=== PATIENT | female | born 1965 | race Caucasian/White ===

== ENCOUNTER 2016-11-29 15:16 | Inpatient (IN) ==
[2016-11-29] MEDS ORDERED: SALINE FLUSH 10ml SYRINGE IVF PRN (15:50)
[2016-11-29] MEDS ORDERED: VANCOMYCIN 1,000 MG in NS 500ml 500 ML IV ONE (15:50)
[2016-11-29] MEDS ORDERED: NS 1,000 ML IV ONE (15:50)
--- NOTE | 2016-11-29 16:05 | Emergency Department Report ---
Skin/Abscess/FB HPI - General Chief complaint: Skin/Abscess/Foreign Body Stated complaint: lt leg wound Time Seen by Provider: 11/29/16 15:32 Source: patient, RN notes reviewed Mode of arrival: ambulatory Limitations: no limitations - History of Present Illness HPI narrative: 51yo woman is referred to the ER from wound care clinic. Pt missed her appt for wound vac change yesterday; pt arrived today and wound was found to be infected , necrotic, and draining purulent fluid. Pt c/o severe leg pain at base, with significant increase with palpation. MD complaint: other (Infected wound) Location: LLE Severity: severe Severity scale (1-10): 8 Quality: aching, sharp Consistency: constant Exacerbating factors: palpation, movement Associated symptoms: denies other symptoms Treatments prior to arrival: bandages, other (Wound vac) - Related Data Previous Rx's Medication Instructions Recorded Amlodipine [Norvasc] 5 mg PO DAILY #30 tablet 12/02/16 Ciprofloxacin [Cipro] 500 mg PO BID #20 tablet 12/02/16 Hydrocodone/APAP 7.5/325 [[place] 1 tab PO Q4H PRN #40 tablet 12/02/16 7.5/325] Naproxen [Aleve] 220 mg PO BID PRN tablet 12/02/16 Allergies Allergy/AdvReac Type Severity Reaction Status Date / Time amoxicillin Allergy Unknown Verified 11/29/16 15:35 ampicillin Allergy Unknown Verified 11/29/16 15:35 Review of Systems All systems: reviewed and negative except as stated Integumentary: Reports: as per HPI, non-healing lesions, wounds PFSH Patient Stated Medical History Hypertension Yes: UNDIAGNOSED Cellulitis Yes Bipolar Disorder Yes Depression Yes - Social History Smoking status: Current every day smoker Physical Exam - Limitations Limitations: no limitations, language barrier - General General appearance: alert - Normal Exams: Head:: Normocephalic without trauma Eyes:: Pupils are PERRLA w/ EOMI, No scleral icterus, irritation, or foreign bodies noted ENMT:: No facial trauma, nasal exudates, pharyngeal erythema, or exudates are noted Neck:: Full range of motion, without adenopathy, JVD, bruits or thyromegaly Lymphatic:: No lymphadenopathy, or lymphedema noted Musculoskeletal:: No tenderness, or deformity noted, good range of motion, all extremities Neurological:: Patient is alert, and oriented, cranial nerves, motor/sensory/ cerebellar, exams w/o gross deficits, to observation Psychiatric:: Patient exhibits, appropriate attention, emotion and affect - Expanded Lower Extremity Exam 1 - Ulcerated wound with necrotic tissue, fibrin, and foul odor. Lower leg exam: Present: tenderness, swelling, erythema Course - Consultations Consultation #1: Dr. Acosta: Based on size, location, status, and surrounding cellulitis, recommend admission, broad-spectrum atbx, and consult for OR debridement. Time: 16:05 Consultation #2: Hospitalist: Will admit for IV atbx. Time: 16:56 Vital Signs Temperature 98.5 F 11/29/16 15:20 Pulse Rate 94 11/29/16 15:20 Respiratory Rate 18 11/29/16 15:20 Blood Pressure 127/94 H 11/29/16 15:20 Pulse Oximetry 98 11/29/16 15:20 Temperature 97.0 F 12/02/16 11:00 Pulse Rate 67 12/02/16 11:00 Respiratory Rate 14 12/02/16 11:00 Blood Pressure 163/95 H 12/02/16 11:00 Pulse Oximetry 100 12/02/16 11:00 Skin/Abscess/Foreign Body - Differential Diagnosis Likely: abscess of skin or subcutaneous tissue, cellulitis (Ulceration, osteomyelitis) - Medical Records Attestation: I reviewed the patient's medical records. - Lab Data Attestation: I reviewed the patient's lab results. Result diagrams: 12/02/16 04:56 12/02/16 04:56 Lab Results 11/29/16 11/29/16 11/29/16 Range/Units 16:10 16:19 16:19 WBC 14.4 H (4.5-11.0) T/MM3 RBC 4.00 (4.00-5.20) M/MM3 Hgb 13.3 (12-16) GM/DL Hct 40.1 (36-46) % MCV 100.3 H (80-100) UM3 MCH 33.3 (26-34) UUG MCHC 33.2 (31-37) GM/DL RDW Std Deviation 43.4 (36.9-50.2) FL Plt Count 247 (130-400) T/MM3 MPV 10.1 (9.4-12.4) UM3 Immature Gran % (Auto) 0.2 (0.0-0.5) % Neut % (Auto) 78.2 H (33-66) % Lymph % (Auto) 15.8 L (23-45) % [place] % (Auto) 5.3 (0-9.0) % Eos % (Auto) 0.3 (0-4) % Baso % (Auto) 0.2 (0-2) % Neut # 11.2 H (1.8-7.7) T/MM3 Lymph # 2.3 (1-4.8) T/MM3 Imperial # 0.8 (0-0.8) T/MM3 Eos # 0.0 (0-0.5) T/MM3 Baso # 0.0 (0-0.2) T/MM3 Abs Immat Gran (auto) 0.03 (0.00-0.03) T/MM3 Turbidity < 20 (0-20) Sodium 140 (134-144) MEQ/L Potassium 3.8 (3.6-5) MEQ/L Chloride 105 (98-107) MEQ/L Carbon Dioxide 22 (22-30) MEQ/L Anion Gap 13 (5-15) MEQ/L BUN 17.0 (7-17) MG/DL Creatinine 0.7 (0.7-1.2) MG/DL GFR Calculation 89 BUN/Creatinine Ratio 24 (6-26) RATIO Glucose 90 (65-110) MG/DL Calculated Osmolality 271 (261-280) MOSM/KG Calcium 9.6 (8.4-10.2) MG/DL Total Bilirubin 0.60 (0.20-1.30) MG/DL Conjugated Bilirubin 0.00 (0.00-0.30) MG/DL Unconjugated Bilirubin 0.10 (0.00-11.10) MG/DL Icterus Index < 2 (0-7) AST 75 H (14-36) U/L ALT 90 H (9-52) U/L Alkaline Phosphatase 97 (38-126) U/L Total Protein 8.8 H (6.3-8.2) G/DL Albumin 4.2 (3.5-5.0) G/DL Globulin 4.6 H (2.4-3.6) G/DL Albumin/Globulin Ratio 0.9 L (1.1-2.2) RATIO Plasma Lactate 1.8 (0.6-2.2) MMOL/L Specimen Hemolysis < 15 (0-25) Disposition Clinical Impression: WEAKNESS, UTI Disposition: 02 To [facility] Condition: Stable Time of Disposition: 18:00 - Seen By: physician
[2016-11-29] MEDS ORDERED: NAPROXEN 220 MG TABLET PO PRN (18:24)
[2016-11-29] MEDS ORDERED: ONDANSETRON 4 MG/2 ML INJECTION IVP PRN (18:28)
[2016-11-29 18:38] VITALS: BMI 24.8
[2016-11-29] MEDS: NS 1,000 ML IV SCH (18:38)
[2016-11-29] MEDS: CEFEPIME 1 GM in NS 100 ML IV SCH ×2 (18:41→21:00)
[2016-11-29] MEDS: HYDROCODONE/APAP 7.5 MG/325 MG TABLET PO PRN (18:42)
--- NOTE | 2016-11-29 18:42 | Pharmacy Consult-Antibiotics ---
Pharmacy Consult-Vancomycin - Laboratory Information WBC 14.4 T/MM3 (4.5-11.0) H 11/29/16 16:19 BUN 17.0 MG/DL (7-17) 11/29/16 16:19 Creatinine 0.7 MG/DL (0.7-1.2) 11/29/16 16:19 - Consult Information VANCOMYCIN CONSULT: Dx: leg wound Current Renal Fx: SCr = 0.7mg/dl. Will give Vancomycin 2,000mg IV q12hrs. Will continue to monitor and adjust regimen to maintain therapeutic levels. Thank you.
[2016-11-29] MEDS: HYDROMORPHONE 2 MG/ML INJECTION IVP PRN ×2 (20:40→23:49)
--- NOTE | 2016-11-29 23:51 | Consultation ---
DATE OF CONSULTATION 11/29/2016 FINDINGS Mrs. Rodrigues is a 57-year-old female whom I was asked to see today as a result of a wound involving her left lower extremity. 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 She states that she struck her lower extremity overlying a cinder block which was out in the cattle pen. Patient states that a few days later she began to notice that some "blisters were beginning." She states she presented to the emergency room at that time and was subsequently transferred to our wound care facility. Patient states she has been receiving wound care over the last month. Patient states that recently a wound VAC was placed on her wound involving her left lower extremity. Patient states she came into the wound center today for a wound VAC change and staff had noted that her wound became "black and smelly." The patient was subsequent transferred to the emergency room for further evaluation and probable admission. PAST MEDICAL HISTORY, PAST SURGICAL HISTORY, MEDICATIONS, ALLERGIES, SOCIAL HISTORY, FAMILY HISTORY, REVIEW OF SYSTEMS Will be performed by my nurse practitioner, Sam Nicolas. PHYSICAL EXAM GENERAL: Mrs. Rodrigues is a 51-year-old female who does not appear to be in acute distress. VITAL SIGNS: Temperature 98.5, pulse 88, respirations 18, blood pressure 130/ 86. Soa2 100% on room air. HEENT: Normocephalic. Pupils are equally round and react to light and accommodation. CHEST: Clear to auscultation bilaterally. HEART: Regular rate and rhythm. Normal S1 and S2 without gallops, murmurs or clicks. ABDOMEN: Palpation of the abdomen reveals it to be soft and nontender. I do not appreciate any evidence for hepatosplenomegaly nor abnormal masses. EXTREMITIES: Attention was focused to the left lower extremity. There was a dressing overlying the wound involving the anterior tibial surface. Dressing was removed. The patient was found have a wound involving her anterior tibial surface. The wound itself was about 10 cm in length and about 4-5 cm in width. There was a greenish discharge coming forth from the wound itself. The wound surface was "black" as well in nature. There was a fair amount of periwound erythema and induration. Palpation along the edge of the wound did elicit a fair amount of tenderness to the patient. NEURO: Cranial nerves II-XII grossly intact. Patient is without focal motor or sensory deficits. LABORATORY/RADIOGRAPHIC EVALUATION From a laboratory standpoint the patient had a CBC and her white count was elevated at 14.4. CMP was obtained and found to be essentially within normal limits with the exception that her ALT and AST are elevated at 75 and 90, respectively. Wound culture was obtained from the wound in the ER. ASSESSMENT 51-year-old female with traumatic wound involving left lower extremity which appears to have developed progressive infection. Suspect Pseudomonas. PLAN I do believe the patient should be admitted to the facility given worsening of her traumatic wound involving the anterior tibial surface. Given her surrounding erythema, induration and worsening of the wound, I do believe that she is suffering from an underlying infection. I would recommend antibiotic choice that would cover Pseudomonas such as a fluoroquinolone. Orders were written for dressing changes to consist of Iodosorb to provide additional enzymatic debridement of the wound followed by gauze. I do believe that ultimately the patient is going to need to be taken to the operative suite for a more formal excisional surgical debridement of the wound. I do not believe this is emergent in nature. Would recommend placing the patient in the hospital and beginning broad-spectrum antibiotics, initiate local wound care and then proceed with excisional surgical debridement. LANETTE
--- NOTE | 2016-11-30 00:20 | History and Physical ---
CHIEF COMPLAINT Left leg wound with increasing pain and smell. HISTORY OF PRESENT ILLNESS Mrs. Rodrigues is a 51-year-old female who presents to [facility] Emergency Room from wound clinic for evaluation of her left leg wound. She reports in the early part of October she was out walking [place] the [place]. She scraped her left anterior soria and developed a wound. Typically she heals quite well. After this wound occurred she cleaned it and wiped it down. She kept it wrapped. About two days after her initial injury she reports of blister formation and she popped the blister that evening. By the next morning she reports her leg was looking very black. Ultimately she was seen in wound clinic by Dr. Pierre on November 03. She has been working with them ever since. She has been on Bactrim DS but she is not certain when it was started - she reports she has four more tablets left. On Monday, 2016, she had a wound VAC placed. She reports once the wound VAC was placed she noticed her wound started to smell more foul and was having much more discomfort. Over the weekend she was having increasing fevers and chills. She has also been noticing nausea and mild headache. She missed her appointment to be seen in wound clinic but did present to wound clinic today. When the wound was reevaluated it looked much worse - it was malodorous and draining purulent material. She was sent over to emergency room for evaluation. There her heart rate was 94 and blood pressure maintained at 127/98 (the patient does report hypertension with blood pressures usually running much higher). Dr. Gutierrez saw her in the emergency room and he did report a 10 x 5 cm wound on her left anterior tibia. Lab was obtained revealing leukocytosis with white count 14.4 and 78.2% neutrophils. Plasma lactate is 1.8. Liver enzymes are showing elevation. In light of her lower extremity wound with surrounding cellulitis and patient flagging positive for sepsis syndrome, Dr. Aguila was notified and she was subsequently placed in inpatient admission status for further antimicrobial therapy and wound care. Anticipated length of stay is thought to be greater than two midnights. PAST MEDICAL HISTORY Hypertension - the patient not on medication. COPD. Hepatitis C. Depression/anxiety. Tobacco dependency. History of in 1989. History of GONZALEZ/BSO 2004 secondary to bleeding (the patient not sure if she had uterine cancer at that time). Cholecystectomy October 2011. ALLERGIES Amoxicillin. Ampicillin. MEDICATIONS Keldron 5/325 one to two q.6h. p.r.n. Naprosyn 220 mg two tablets q46h p.r.n. Bactrim DS b.i.d. - course nearly completed. SOCIAL HISTORY Patient is to her of four years. She reports he is currently incarcerated, but anticipates him to be released in the near future. She lives on a farm outside [place], [place]. She does smoke but is in the process of cutting down - reports since her leg has been acting up she has only had three cigarettes in the past three days - is interested in stopping smoking. She receives her primary care through [facility] and has seen Dr. Carvalho for cardiac care. FAMILY HISTORY Mother at age 51 with myocardial infarction - she had hypertension and diabetes. Father at age 65 - the patient uncertain of cause. REVIEW OF SYSTEMS As above. GENERAL: Notes decreased appetite and nausea. She has had fevers off and on. HEENT: Notes blurred vision and headaches. Denies hearing change. Denies mouth pain. RESPIRATORY: Notes shortness of air and occasional cough. Denies pain with breathing. CARDIOVASCULAR: Notes palpitations. Denies chest pressure or heaviness. GI: Bowels have been stable. Notes nausea. : Notes urinary frequency. Denies pain, burning or blood. NEUROLOGIC: Denies localizing symptoms. SKIN: Denies other skin abnormalities other than her wound. Remainder of 10-point review of systems is negative. PHYSICAL EXAMINATION VITAL SIGNS: Weight 76.4 kg. BMI 24.5. Temperature 98.5, pulse 94/regular, respiratory rate 18/unlabored. Blood pressure 127/94. 98% room air saturation. GENERAL: Well-developed, well-nourished female who is awake, alert. She interacts appropriately. She does appear slightly ill but not toxic. HEENT: NC/AT. PERRLA. EOMI. No scleral icterus. Mucous membranes moist. Normal dentition. NECK: Supple without rigidity. Trachea is midline. LUNGS: Clear to auscultation bilaterally. I am not appreciating crackles or wheeze. She breathes comfortably on room air without distress. CARDIOVASCULAR: Regular rate and rhythm without murmur. ABDOMEN: Soft, nontender, nondistended. Bowel sounds are normoactive. I am not appreciating rebound tenderness or guarding. EXTREMITIES: No clubbing or cyanosis. The patient's left leg does appear more swollen as compared to the right. She has a wound which is currently wrap. The area of skin surrounding the wrapping does appear erythematous and is much more tender to touch than on the right side. NEUROLOGIC: Cranial nerves II-XII are grossly intact. No focal motor deficits. Vision and hearing are grossly intact. PSYCHIATRIC: Patient is awake, alert and oriented. Thoughts are linear. She interacts appropriately. SKIN: Warm and dry - patient is well tanned. She does have a covered wound on her left lower extremity. LABORATORY White blood count is 14.4 with 78.2% neutrophils. Hemoglobin is 13.3 with hematocrit 40.1, MCV 100.3 and platelets 247,000. Serum sodium is 140, potassium 3.8, chloride 105, CO2 22, BUN 17 with creatinine 0.7, GFR 89, blood glucose 90. AST is elevated at 75 with ALT elevated at 90. Plasma lactate is 1.8. ASSESSMENT 1. Sepsis syndrome - manifestations include tachycardia, leukocytosis. Source leg wound with cellulitis. 2. Nonhealing left lower extremity leg wound with surrounding cellulitis, failing outpatient therapy. 3. Leukocytosis. 4. Elevated liver enzymes. 5. Hypertension. 6. COPD. 7. Depression/anxiety. 8. Tobacco dependency PLAN 1. Will place patient in inpatient admission status at [facility] under the care of Dr. Aguila. Anticipate greater than two midnights of care needed. 2. Start vancomycin empirically for antimicrobial coverage of skin. Will add cefepime as Dr. Acosta worries there may be Pseudomonas involved. 3. Initiate IV fluids of normal saline at 100 mL/hr to maintain hydration. 4. Will have Keldron 7.5 available every four hours as needed for pain. She may continue with Aleve but would decrease the dose down to 220 mg b.i.d. p.r.n. ( possible elevation of liver enzymes secondary to excessive Aleve use). In addition, for more severe pain Dilaudid 0.5 mg will be available q.3h. as needed. 5. Dr. Acosta has been consulted - will help follow with wound care. 6. Will consult with wound team. 7. RT will provide tobacco cessation information. Patient was encouraged to continue to work to become a nonsmoker. 8. Initiate SCDs to her right lower extremity for DVT prevention. 9. Will have Zofran available as needed for nausea. 10. Milk of magnesia will be available as needed for constipation. 11. Recheck CBC and CMP in a.m. 12. Patient's care will be returned to [facility] at time of discharge from [facility]. 13. Case was discussed with Dr. Gutierrez and Dr. Acosta. LANETTE
[2016-11-30] MEDS: CEFEPIME 1 GM in NS 100 ML IV SCH ×4 (02:03→22:29)
[2016-11-30] MEDS: DiphenhydrAMINE 25 MG CAPSULE PO PRN ×2 (02:12→05:20)
[2016-11-30] MEDS: HYDROCODONE/APAP 7.5 MG/325 MG TABLET PO PRN ×3 (02:12→21:48)
[2016-11-30] MEDS: HYDROMORPHONE 2 MG/ML INJECTION IVP PRN ×3 (04:11→20:05)
[2016-11-30] MEDS: LORazepam 1 MG TABLET PO PRN ×2 (04:18→21:49)
--- NOTE | 2016-11-30 07:12 | General Surgery Consult Note ---
Consult date: 11/30/16 Attending Physician: Santos Aguila MD PCP. [facility] Reason for consult: wound care [facility] Patient Stated Medical History Migraine Yes Angina Yes Hypertension Yes: UNDIAGNOSED Other Cardiology Yes: ENDOCARDITIS Gastroesophageal Reflux Yes Disease Hx Urinary Tract Infection Yes Cellulitis Yes: CURRENT ON LEFT LEG Bipolar Disorder Yes Depression Yes COPD Hep-C Surgical History: Lap janae for Biliary Dyskinesia - Dave. Left 4th ring finger tendon repair 2008. GONZALEZ-BSO 2004 for bleeding. C-Sec -1987 Family History: mother age 51 - [place], HTN, DM father age 65 - spine cancer (per Dr. Joshi prior note) - Social History Smoking status: Current every day smoker Household members: spouse (although he is currently incarcerated and is to be released soon) Medications Home Medications Medication Instructions Recorded Confirmed Type Naproxen Sodium [Aleve] 440 mg PO Q6HR PRN 11/01/16 11/29/16 History Allergies Allergy/AdvReac Type Severity Reaction Status Date / Time amoxicillin Allergy Unknown Verified 11/29/16 15:35 ampicillin Allergy Unknown Verified 11/29/16 15:35 Review of Systems 10-point ROS: negative except for HPI and the following: - General General: Present: fever, chills - Eyes/Ears/Nose/Throat Eyes: Present: vision problems (blurry vision) - Cardiovascular Cardiovascular: Present: chest pain (angina) (pressure), palpitations - Respiratory Respiratory: Present: difficulty breathing (COPD) - Gastrointestinal Gastrointestinal: Present: nausea - Genitourinary Genitourinary: Present: other (urinary frequency) - Psychiatric Psychiatric: Present: anxiety, depression - Vital Signs Last Vital Signs Temp 96.2 F L 11/30/16 00:00 Pulse 76 11/30/16 00:00 Resp 20 11/30/16 00:00 BP 111/77 11/30/16 00:00 Pulse Ox 100 11/30/16 00:00 - Laboratory Result Diagrams: 11/30/16 04:37 11/30/16 04:37 Wound/Stoma/Drain Assessment - Wound Management Left Lower Leg Wound Type: Open Wound Wound Present on Admission?: Yes Wound Length: 8.5 Wound Width: 4 Wound Surrounding Tissue Appearance: Dark Red Wound Drainage Odor: Slight Odor Wound Dressing Status: Dry & Intact, Reinforced Wound Packing Type: Gauze Pads Primary Dressing: Gauze Pad General Surgery Results - Results Labs: 11/30/16 04:37 11/30/16 04:37 Hospital Course Summary Disclaimer: The visit summary below is not to be considered part of the above Progress Note. Sepsis Assessment - Evaluation Sepsis screening result: Sepsis Risk
[2016-11-30] MEDS ORDERED: DiphenhydrAMINE 25 MG CAPSULE PO PRN (07:31)
[2016-11-30] MEDS: NS 1,000 ML IV SCH (07:39)
--- NOTE | 2016-11-30 11:23 | Pharmacy Consult-Antibiotics ---
Pharmacy Consult-Vancomycin - Laboratory Information WBC 7.8 T/MM3 (4.5-11.0) D 11/30/16 04:37 BUN 18.0 MG/DL (7-17) H 11/30/16 04:37 Creatinine 0.7 MG/DL (0.7-1.2) 11/30/16 04:37 VANCOMYCIN SHORT REVIEW: Today's SCr = 0.7 mg/dL. Calculated CrCl > 100 mL/min The renal function appears to be stable. I will continue the Vancomycin as currently ordered, 2,000 mg IV Q12hrs. I ordered a Vancomycin trough and serum creatinine before the 12/01/16 0800 dose. The pharmacy will review the trough and creatinine clearance at that time and will adjust the Vancomycin if needed. Thanks for the Vancomycin Protocol, Justo Swift, Pharmacist.
[2016-11-30] MEDS ORDERED: LIDOCAINE 2.5%/PRILOCAINE 2.5% CREAM 30gm TOP PRN (13:06)
[2016-11-30] MEDS: NAPROXEN 220 MG TABLET PO PRN (15:42)
--- NOTE | 2016-11-30 17:20 | Progress Note ---
<Lisa Freeman V - Last Filed: 11/30/16 17:17> Subjective: Danyelle is seen this afternoon in follow up. She is resting in bed today and reports having difficulty sleeping overnight as her "mind was racing". She has a moderate amount of pain to the left leg wound today and has been ulitlizing [place] for pain. She does note some mild generalized itching following [place]. Remains afebrile. Objective Vital signs: Temperature 96.5 F L 11/30/16 08:00 Pulse Rate 66 11/30/16 08:00 Respiratory Rate 16 11/30/16 08:00 Blood Pressure 132/84 11/30/16 08:00 Pulse Oximetry 98 11/30/16 08:00 Oxygen Delivery Method Room Air Weight: 78.3 kg - Constitutional Present: well nourished, well developed - Routine HEENT Exam Eye: Present: EOMI ENT: Present: mucous membranes moist, dentition normal - Routine Respiratory Exam Present: CTA bilaterally. Absent: wheezes - Routine Cardiovascular Exam Present: RRR. Absent: murmur - Routine Abdominal Exam Present: soft, normoactive bowel sounds, non distended. Absent: tenderness - Routine Extremities Exam Present: edema (LLE) - Routine Back/Spine/Pelvis Exam Back/Spine: Present: full ROM - Routine Skin Exam Present: intact, dry, warm - Routine Neurological Exam Present: alert, oriented X3, CN II-XII intact - Routine Lymphatic Exam Lymphatic: Absent: adenopathy - Routine Psychiatric Exam Present: normal affect Results - Labs CBC & Chem 7: 11/30/16 04:37 11/30/16 04:37 Assessment and Plan (1) Sepsis Current visit: Yes Status: Acute (2) Wound of lower extremity Current visit: Yes Status: Acute (3) Leukocytosis Current visit: Yes Status: Resolved (4) Elevated liver enzymes Current visit: Yes Status: Chronic (5) Hypertension Current visit: Yes Status: Chronic (6) COPD (chronic obstructive pulmonary disease) Current visit: Yes Status: Chronic (7) Depression Current visit: Yes Status: Chronic (8) Anxiety Current visit: Yes Status: Chronic (9) Hepatitis C Current visit: Yes Status: Chronic Assessment and Plan: 11/30/16 Including Cefepime and Vancomycin for ongoing antimicrobial coverage. Work on pain control including Emla cream topical, and [place] She may utilize Benadryl as needed for itching Continue to monitor laboratory studies. Leukocytosis have resolved, white count today 7.8. Continue to follow. Elevated liver enzymes as this is likely chronic related to her history of hepatitis C. Recheck CBC and CMP tomorrow morning to follow blood counts, renal function, electrolytes and LFTs. Appreciate surgical recommendations as per Dr. Acosta. Planning for incision and drainage tomorrow 12/01 Sepsis Assessment - Evaluation Sepsis screening result: No Definite Risk Hospital Course Summary Disclaimer: The visit summary below is not to be considered part of the above Progress Note. Hospital Course: 11/29/16- Admission 1. Will place patient in inpatient admission status at [facility] under the care of Dr. Aguila. Anticipate greater than two midnights of care needed. 2. Start vancomycin empirically for antimicrobial coverage of skin. Will add cefepime as Dr. Acosta worries there may be Pseudomonas involved. 3. Initiate IV fluids of normal saline at 100 mL/hr to maintain hydration. 4. Will have [place] 7.5 available every four hours as needed for pain. She may continue with Aleve but would decrease the dose down to 220 mg b.i.d. p.r.n. ( possible elevation of liver enzymes secondary to excessive Aleve use). In addition, for more severe pain Dilaudid 0.5 mg will be available q.3h. as needed. 5. Dr. Acosta has been consulted - will help follow with wound care. 6. Will consult with wound team. 7. RT will provide tobacco cessation information. Patient was encouraged to continue to work to become a nonsmoker. 8. Initiate SCDs to her right lower extremity for DVT prevention. 9. Will have Zofran available as needed for nausea. 10. Milk of magnesia will be available as needed for constipation. 11. Recheck CBC and CMP in a.m. 12. Patient's care [facility] to [facility] at time of discharge from [facility]. 13. Case was discussed with Dr. Gutierrez and Dr. Acosta. 11/30/16 Including Cefepime and Vancomycin for ongoing antimicrobial coverage. Work on pain control including Emla cream topical, and [place] She may utilize Benadryl as needed for itching Continue to monitor laboratory studies. Leukocytosis have resolved, white count today 7.8. Continue to follow. Elevated liver enzymes as this is likely chronic related to her history of hepatitis C. Recheck CBC and CMP tomorrow morning to follow blood counts, renal function, electrolytes and LFTs. Appreciate surgical recommendations as per Dr. Acosta. Planning for incision and drainage tomorrow 12/01 <Santos Aguila - Last Filed: 11/30/16 20:54> Objective Vital signs: Temperature 96.5 F L 11/30/16 08:00 Pulse Rate 66 11/30/16 16:00 Respiratory Rate 16 11/30/16 16:00 Blood Pressure 133/76 11/30/16 16:00 Pulse Oximetry 97 11/30/16 16:00 Oxygen Delivery Method Room Air Results - Labs CBC & Chem 7: 11/30/16 04:37 11/30/16 04:37 Assessment and Plan (1) Sepsis Current visit: Yes Status: Acute (2) Wound of lower extremity Current visit: Yes Status: Acute (3) Leukocytosis Current visit: Yes Status: Resolved (4) Elevated liver enzymes Current visit: Yes Status: Chronic (5) Hypertension Current visit: Yes Status: Chronic (6) COPD (chronic obstructive pulmonary disease) Current visit: Yes Status: Chronic (7) Depression Current visit: Yes Status: Chronic (8) Anxiety Current visit: Yes Status: Chronic (9) Hepatitis C Current visit: Yes Status: Chronic Assessment and Plan: Have independently interviewed and examined pt. Chart reviewed. Case discussed with my BALE BREAKER OPERATOR. Care plan developed with my supervision; agree with above. Doing fair-not used to being indoors all the time. Slept poorly-leg pain and hard to get comfortable. Breathing stable. Appetite decrease, but no nause. Dr Acosta did bedside debridement-plans OR visit tomorrow. Lungs: clear CV: regular AB: soft nt/nd +BS MSE: awake alert appropriate Plan: Continue with vanco and cefepime for coverage. Continue wound care as outline by Dr Acosta-anticipate Sx debridement tomorrow. Continue pain control. Hospital Course Summary Disclaimer: The visit summary below is not to be considered part of the above Progress Note.
--- NOTE | 2016-11-30 17:49 | Progress Note ---
DATE OF SERVICE 11/30/2016 FINDINGS The patient today states that she is not feeling well. She states that she is extremely tired. She continues to have discomfort involving the left lower extremity. EXAM VITAL SIGNS: Afebrile, normotensive. Current vitals include temperature 96.5, pulse 66, respirations 16, blood pressure 132/84, SAO2 98% on room air. HEENT: Normocephalic. Pupils are equally round and react to light and accommodation. CHEST: Clear to auscultation bilaterally. HEART: Regular rate and rhythm. Normal S1 and S2 without gallops, murmurs or clicks. EXTREMITIES: Attention was focused to the left lower extremity. Visualization of the lower extremity does reveal ongoing erythema surrounding the wound upon the anterior tibial surface. There is some residual necrotic tissue within the wound bed itself. Overall the wound does appear slightly improved in comparison to last evening. ASSESSMENT 51-year-old female with traumatic wound involving left lower extremity with associated necrotic subcutaneous tissues and surrounding cellulitis. PLAN Continue with ongoing antibiotic therapy. Attempt was made at performing bedside debridement today. EMLA Cream was placed overlying the wound and several minutes were allowed to elapse. Next, utilizing a sharp surgical curette, tissue forceps and 15-blade, a portion of the underlying necrotic subcutaneous tissue was able to be excised. The patient, however, began to experience a moderate amount of discomfort and therefore the procedure was aborted before all necrotic tissue could be completely excised. We will apply Iodosorb overlying the wound and reevaluate wound tomorrow morning. If the patient continues to have ongoing necrotic material, the patient may ultimately be taken to the operative suite tomorrow for a more formal excisional surgical debridement. For the meantime will continue with current antibiotic therapy and local wound care. LANETTE
[2016-12-01] MEDS: NS 1,000 ML IV SCH ×3 (02:26→14:38)
[2016-12-01] MEDS: CEFEPIME 1 GM in NS 100 ML IV SCH ×4 (05:07→19:47)
--- NOTE | 2016-12-01 08:44 | General Surgery Progress Note ---
Subjective Patient reports: still having pain (especially at wound site and distally to foot) - Vital Signs Last Vital Signs Temp 97.1 F 12/01/16 07:42 Pulse 79 12/01/16 07:42 Resp 16 12/01/16 07:42 BP 137/98 H 12/01/16 07:42 Pulse Ox 98 12/01/16 07:42 - Laboratory Result Diagrams: 12/01/16 04:37 12/01/16 06:37 - Microbiogy Microbiology 11/29/16 16:08 Leg, Left Superficial Wound Culture - Preliminary Gram Negative Lemuel Gram Negative Lemuel#2 - Abnormal Exam General: mild distress (2nd to left ankle and foot pain) - Normal Exam General: awake, alert, oriented Cardiovascular: regular rhythm, regular rate Respiratory: clear bilaterally Abdominal: non-tender Wound/Stoma/Drain Assessment - Wound Management Left Lower Leg Wound Type: Open Wound Wound Present on Admission?: Yes Wound Length: 8.5 Wound Width: 4 Wound Depth: 1.5 Tunneling: No Wound Bed Appearance: Beefy Red, [place], Yellow, [place], Slough Wound Surrounding Tissue Appearance: [place], Bright Red, Edematous Wound Drainage Description: Serosanguineous Wound Drainage Amount: Scant Wound Drainage Odor: Slight Odor Wound Dressing Status: Changed Wound Irrigant Solution: Enzymatic Paste Wound Packing Type: Gauze Pads Primary Dressing: Gauze Pad Secondary Dressing: Adhesive Dressing, Absorbant Pad Dressing Change Date: 11/30/16 Dressing Change Time: 13:20 Dressing Change Patient Tolerance: Tolerated Poorly Assessment and Plan (1) Wound of lower extremity Current Visit: Yes Status: Acute Qualifiers: Encounter type: initial encounter Laterality: left Qualified Code(s): S81.802A - Unspecified open wound, left lower leg, initial encounter Plan: Wound looking much better after utilizing Iodosorb over night, about 90% beefy but still with dorman necrotic at the base and cephalad corner. Much too tender to attempt any type of debridement. Any even light touch is very painful. WBC now 4.1 (7.8 yesterday), continue Cefapine and Vaco for now, adjust as needed once C&S is complete. She has been NPO since midnight, will take her to the OR for light sedation and a more thorough debridement later this morning. Hospital Course Summary Disclaimer: The visit summary below is not to be considered part of the above Progress Note. Hospital Course: 11/29/16- Admission 1. Will place patient in inpatient admission status at [facility] under the care of Dr. Aguila. Anticipate greater than two midnights of care needed. 2. Start vancomycin empirically for antimicrobial coverage of skin. Will add cefepime as Dr. Acosta worries there may be Pseudomonas involved. 3. Initiate IV fluids of normal saline at 100 mL/hr to maintain hydration. 4. Will have [place] 7.5 available every four hours as needed for pain. She may continue with Aleve but would decrease the dose down to 220 mg b.i.d. p.r.n. ( possible elevation of liver enzymes secondary to excessive Aleve use). In addition, for more severe pain Dilaudid 0.5 mg will be available q.3h. as needed. 5. Dr. Acosta has been consulted - will help follow with wound care. 6. Will consult with wound team. 7. RT will provide tobacco cessation information. Patient was encouraged to continue to work to become a nonsmoker. 8. Initiate SCDs to her right lower extremity for DVT prevention. 9. Will have Zofran available as needed for nausea. 10. Milk of magnesia will be available as needed for constipation. 11. Recheck CBC and CMP in a.m. 12. Patient's care will be returned to [facility] at time of discharge from [facility]. 13. Case was discussed with Dr. Gutierrez and Dr. Acosta. 11/30/16 Including Cefepime and Vancomycin for ongoing antimicrobial coverage. Work on pain control including Emla cream topical, and [place] She may utilize Benadryl as needed for itching Continue to monitor laboratory studies. Leukocytosis have resolved, white count today 7.8. Continue to follow. Elevated liver enzymes as this is likely chronic related to her history of hepatitis C. Recheck CBC and CMP tomorrow morning to follow blood counts, renal function, electrolytes and LFTs. Appreciate surgical recommendations as per Dr. Acosta. Planning for incision and drainage tomorrow 12/01 Sepsis Assessment - Evaluation Sepsis screening result: No Definite Risk
[2016-12-01] MEDS ORDERED: BISACODYL 10 MG SUPPOSITORY RECTALLY PRN ×2 (09:16→15:00)
[2016-12-01] MEDS ORDERED: POLYETHYL GLYCOL 3350 17gm PACKET PO PRN (09:16)
[2016-12-01] MEDS ORDERED: MIDAZOLAM 2mg/2ml INJECTION ONE (10:41)
[2016-12-01] MEDS ORDERED: FentaNYL 100 MCG/2 ML INJECTION ONE (10:41)
[2016-12-01] MEDS ORDERED: PROPOFOL 500 MG/50 ML VIAL IV ONE (10:42)
[2016-12-01] MEDS ORDERED: BUPIVACAINE 0.25%/EPI 1:200,000 30ml SDV ID ONE (11:18)
--- NOTE | 2016-12-01 11:20 | Pharmacy Consult-Antibiotics ---
Pharmacy Consult-Vancomycin - Laboratory Information WBC 4.1 T/MM3 (4.5-11.0) L D 12/01/16 04:37 BUN 14.0 MG/DL (7-17) 12/01/16 04:37 Creatinine 0.7 MG/DL (0.7-1.2) 12/01/16 06:37 Vancomycin Trough 20.24 UG/ML (15-20) H 12/01/16 06:37 VANCOMYCIN CONSULT: Dx: Leg Wound Current Renal Fx: SCr = 0.7 mg/dl. Est. CrCl ~ 100 mL/min. Vancomycin Trough = 20.24 mcg/mL (Range: 15-20 mcg/mL). I will change the Vancomycin to 1,750 mg iv every 12 hours (1000/2200). The estimated trough will be around 17 mcg/mL. The pharmacy will continue to monitor the renal function and the Vancomycin troughs and will adjust the regimen to maintain therapeutic levels. Thank you for the Vancomycin Protocol, Justo Swift, Pharmacist.
--- NOTE | 2016-12-01 11:52 | General Surgery Procedure Note ---
Date of Procedure: 12/01/16 Surgeon: Dave Swim Coach: Sam Nicolas APRN Postoperative Diagnosis: Open wound with necrosis left lower leg Procedure: Surgical debridement of necrotic tissue left lower leg wound Estimated Blood Loss: See Anesthesia Record.
[2016-12-01] MEDS: HYDROMORPHONE 2 MG/ML INJECTION IVP PRN ×4 (11:59→19:43)
--- NOTE | 2016-12-01 13:04 | Anesthesia Postoperative Note ---
- Date and Time Date: 12/01/16 Time: 13:00 - Status Patient Participated in Evaluation: Patient Participated in Person Vital Signs: Temperature 97.0 F 12/01/16 11:40 Pulse Rate 53 L 12/01/16 12:40 Respiratory Rate 14 12/01/16 12:40 Blood Pressure 162/90 H 12/01/16 12:40 Pulse Oximetry 97 12/01/16 12:40 Oxygen Delivery Method Room Air Respiratory Function: Airway Patent, Regular Respirations Cardiovascular Function: Regular Pulse Mental Status: Alert and Oriented Pain Intensity: 5 Hydration: IV Infusing Complications During Recover: None Apparent - Follow-Up Instructions Instructions: Per Surgeon
[2016-12-01] MEDS: HYDROCODONE/APAP 7.5 MG/325 MG TABLET PO PRN ×2 (14:54→22:34)
--- NOTE | 2016-12-01 16:02 | Progress Note ---
Subjective: F/U: Sepsis-resolved, traumatic wound to LE failing outpatient treatment Doing okay this afternoon-tolerated Surgical debridement. More pain to leg-meds are helping. Does need help getting up and around-leg painful with ambulation. Breathing well. Eating well. No ab pain. Feels bowels are stable. Tired of being in Hospital (not used to being indoors this much), but feels mood stable. Objective Vital signs: Temperature 96.6 F L 12/01/16 13:25 Pulse Rate 67 12/01/16 15:10 Respiratory Rate 14 12/01/16 13:25 Blood Pressure 154/89 H 12/01/16 14:40 Pulse Oximetry 99 12/01/16 15:10 Oxygen Delivery Method Room Air Weight: 81.3 kg - Constitutional Present: no acute distress, well nourished, well developed, cooperative - Routine HEENT Exam Head: Present: normocephalic, atraumatic Eye: Present: EOMI, PERRL ENT: Present: mucous membranes moist - Routine Respiratory Exam Present: CTA bilaterally. Absent: respiratory distress, rhonchi, wheezes - Routine Cardiovascular Exam Present: RRR - Routine Abdominal Exam Present: soft, normoactive bowel sounds, non distended, non tender - Routine Extremities Exam Present: cyanosis, clubbing, edema (To left ankle. ) - Routine Musculoskeletal Exam Musculoskeletal: Present: no clubbing or cyanosis, normal strength - Routine Skin Exam Present: dry, warm, wounds (To left soria covered and dry ) - Routine Neurological Exam Present: alert, oriented X3, CN II-XII intact, vision grossly intact, hearing grossly intact. Absent: motor deficit - Routine Psychiatric Exam Present: normal affect, normal thought process, cooperative, good insight, good judgment. Absent: anxious, agitated Results - Labs CBC & Chem 7: 12/01/16 04:37 12/01/16 06:37 Assessment and Plan (1) Wound of lower extremity Current visit: Yes Status: Acute (2) Sepsis Current visit: Yes Status: Resolved (3) Leukocytosis Current visit: Yes Status: Resolved (4) Elevated liver enzymes Current visit: Yes Status: Chronic (5) Hypertension Current visit: Yes Status: Chronic (6) COPD (chronic obstructive pulmonary disease) Current visit: Yes Status: Chronic (7) Depression Current visit: Yes Status: Chronic (8) Anxiety Current visit: Yes Status: Chronic (9) Hepatitis C Current visit: Yes Status: Chronic DVT Prophylaxis: SCD's Assessment and Plan: Underwent surgical debridement of necrotic tissue of left lower leg wound - Dr Acosta Continue with vanco and cefepime for coverage. Culture and sensitivities pending. Continue wound care as outline by Dr Acosta. Decrease IVF to 50cc/hr. Continue pain control. As blood pressure with elevation will start Norvasc 5mg daily. Will consult PT in am to help functional status due to gait instability from leg wound. Recheck CBC in am due to leukopenia. Will check BMP in am due to IVF and medication use. Sepsis Assessment - Evaluation Sepsis screening result: No Definite Risk Hospital Course Summary Disclaimer: The visit summary below is not to be considered part of the above Progress Note. Hospital Course: 11/29/16- Admission 1. Will place patient in inpatient admission status at [facility] under the care of Dr. Aguila. Anticipate greater than two midnights of care needed. 2. Start vancomycin empirically for antimicrobial coverage of skin. Will add cefepime as Dr. Acosta worries there may be Pseudomonas involved. 3. Initiate IV fluids of normal saline at 100 mL/hr to maintain hydration. 4. Will have [place] 7.5 available every four hours as needed for pain. She may continue with Aleve but would decrease the dose down to 220 mg b.i.d. p.r.n. ( possible elevation of liver enzymes secondary to excessive Aleve use). In addition, for more severe pain Dilaudid 0.5 mg will be available q.3h. as needed. 5. Dr. Acosta has been consulted - will help follow with wound care. 6. Will consult with wound team. 7. RT will provide tobacco cessation information. Patient was encouraged to continue to work to become a nonsmoker. 8. Initiate SCDs to her right lower extremity for DVT prevention. 9. Will have Zofran available as needed for nausea. 10. Milk of magnesia will be available as needed for constipation. 11. Recheck CBC and CMP in a.m. 12. Patient's care [facility] to [facility] at time of discharge from [facility]. 13. Case was discussed with Dr. Gutierrez and Dr. Acotsa. 11/30/16 Including Cefepime and Vancomycin for ongoing antimicrobial coverage. Work on pain control including Emla cream topical, and [place] She may utilize Benadryl as needed for itching Continue to monitor laboratory studies. Leukocytosis have resolved, white count today 7.8. Continue to follow. Elevated liver enzymes as this is likely chronic related to her history of hepatitis C. Recheck CBC and CMP tomorrow morning to follow blood counts, renal function, electrolytes and LFTs. Appreciate surgical recommendations as per Dr. Acosta. Planning for incision and drainage tomorrow 12/0112/01/16 Underwent surgical debridement of necrotic tissue of left lower leg wound - Dr Acosta Continue with vanco and cefepime for coverage. Culture and sensitivities pending. Continue wound care as outline by Dr Acosta. Decrease NS to 50cc/hr. Continue pain control. As blood pressure with elevation will start Norvasc 5mg daily. Will consult PT in am to help functional status due to gait instability from leg wound. Recheck CBC in am due to leukopenia. Will check BMP in am due to IVF and medication use.
[2016-12-01] MEDS ORDERED: NS 1,000 ML IV SCH (16:15)
[2016-12-01] MEDS: LORazepam 1 MG TABLET PO PRN (17:12)
[2016-12-01] MEDS: NAPROXEN 220 MG TABLET PO PRN (17:12)
--- NOTE | 2016-12-01 20:27 | Operative Note ---
DATE OF SERVICE 12/01/2016 SURGEON Sage Acosta MD PREOPERATIVE DIAGNOSIS Traumatic wound involving left anterior tibial surface with associated soft tissue necrosis. POSTOPERATIVE DIAGNOSIS Traumatic wound involving left anterior tibial surface with associated soft tissue necrosis. PROCEDURE Excisional surgical debridement of necrotic skin and subcutaneous tissues from wound involving left anterior tibial surface. Area debrided 8 cm x 4 cm. ANESTHESIA TIVA BRIEF HISTORY/INDICATIONS Mrs. Rodrigues is a 51-year-old female who a little over a month ago had a traumatic wound involving her left anterior tibial surface. She had struck her leg against a cinder block that had been present in a barnyard type of setting. The patient presented to our facility as a result of infectious process involving this wound with associated necrosis. She has been on broad-spectrum antibiotics. Attempt was made at performing debridement at the bedside and secondary to pain that the patient was experiencing the procedure was unable to be completed. It was therefore recommended that she undergo additional debridement under total of total intravenous anesthesia. For completeness please refer to notes included in the patient's chart. DESCRIPTION OF PROCEDURE After informed consent was obtained the patient was brought to the operative suite and placed on the table in supine fashion. The left lower extremity was prepped and draped in sterile fashion. Formal time-out was then completed. 0.25% Marcaine with epinephrine was injected along the edges of the wound. Next , utilizing a sharp surgical curette, tissue forceps and a 15-blade, all necrotic skin and subcutaneous tissues was excised from the wound itself until a minimal amount of bleeding began to occur. Hemostasis was obtained with the use of electrocautery. Area debrided was approximately 8 cm x 4 cm in diameter. Next, a wound dressing was subsequently applied consisting of Silver Aquacel and Allevyn foam dressing. The patient was sent back to the preop area once deemed in stable condition. LANETTE
[2016-12-02] MEDS: CEFEPIME 1 GM in NS 100 ML IV SCH ×3 (01:50→14:24)
[2016-12-02] MEDS: HYDROCODONE/APAP 7.5 MG/325 MG TABLET PO PRN ×2 (07:36→13:06)
--- NOTE | 2016-12-02 08:06 | General Surgery Progress Note ---
Subjective Patient reports: no new complaints, pain is less (left lower leg), tolerating a regular diet, no bowel movement, afebrile - Vital Signs Last Vital Signs Temp 97.8 F 12/02/16 07:44 Pulse 74 12/02/16 07:44 Resp 20 12/02/16 07:44 BP 156/96 H 12/02/16 07:44 Pulse Ox 92 12/02/16 07:44 - Laboratory Result Diagrams: 12/02/16 04:56 12/02/16 04:56 - Microbiogy Microbiology 11/29/16 16:08 Leg, Left Gram Stain - Final 11/29/16 16:08 Leg, Left Superficial Wound Culture - Preliminary Gram Negative Lemuel Gram Negative Lemuel#2 - Normal Exam General: no acute distress (hope to be discharged soon) Cardiovascular: regular rhythm, regular rate Respiratory: clear bilaterally Abdominal: non-tender Additional Normal Findings: Left lower leg Mepilex dressing in tact with only 3 spots of darkness about 2-3 mm each on the dressing, indicating foam is NOT saturated. Dressing reinforced with tape this morning. Edema and erythema distal to the wound is improving, minimal erythema. Wound/Stoma/Drain Assessment - Wound Management Left Lower Leg Wound Type: Open Wound Wound Present on Admission?: Yes Wound Staging: Stage III Wound Length: 8.5 Wound Width: 4 Wound Depth: 1.5 Tunneling: No Wound Bed Appearance: Beefy Red, [place], Yellow, [place], Slough Wound Surrounding Tissue Appearance: [place], Bright Red, Edematous Wound Drainage Description: Serosanguineous Wound Drainage Amount: None Wound Drainage Odor: No Odor Wound Dressing Status: Dry & Intact Wound Irrigant Solution: Enzymatic Paste Wound Packing Type: Gauze Pads Primary Dressing: Silver Dressing Secondary Dressing: Mepilex Dressing Change Date: 11/30/16 Dressing Change Time: 13:20 Dressing Change Patient Tolerance: Tolerated Poorly Assessment and Plan (1) Wound of lower extremity Current Visit: Yes Status: Acute Qualifiers: Encounter type: initial encounter Laterality: left Qualified Code(s): S81.802A - Unspecified open wound, left lower leg, initial encounter Plan: Specialty dressing of Aquacel AG and Mepilex in place, orders to change this about 3 times a week. Sensitivity from the culture is still pending. Would like this before deciding on discharge ABX. Hospital Course Summary Disclaimer: The visit summary below is not to be considered part of the above Progress Note. Hospital Course: 11/29/16- Admission 1. Will place patient in inpatient admission status at [facility] under the care of Dr. Aguila. Anticipate greater than two midnights of care needed. 2. Start vancomycin empirically for antimicrobial coverage of skin. Will add cefepime as Dr. Acosta worries there may be Pseudomonas involved. 3. Initiate IV fluids of normal saline at 100 mL/hr to maintain hydration. 4. Will have Victor 7.5 available every four hours as needed for pain. She may continue with Aleve but would decrease the dose down to 220 mg b.i.d. p.r.n. ( possible elevation of liver enzymes secondary to excessive Aleve use). In addition, for more severe pain Dilaudid 0.5 mg will be available q.3h. as needed. 5. Dr. Acosta has been consulted - will help follow with wound care. 6. Will consult with wound team. 7. RT will provide tobacco cessation information. Patient was encouraged to continue to work to become a nonsmoker. 8. Initiate SCDs to her right lower extremity for DVT prevention. 9. Will have Zofran available as needed for nausea. 10. Milk of magnesia will be available as needed for constipation. 11. Recheck CBC and CMP in a.m. 12. Patient's care will [facility] to [facility] at time of discharge from [facility]. 13. Case was discussed with Dr. Gutierrez and Dr. Acosta. 11/30/16 Including Cefepime and Vancomycin for ongoing antimicrobial coverage. Work on pain control including Emla cream topical, and Victor She may utilize Benadryl as needed for itching Continue to monitor laboratory studies. Leukocytosis have resolved, white count today 7.8. Continue to follow. Elevated liver enzymes as this is likely chronic related to her history of hepatitis C. Recheck CBC and CMP tomorrow morning to follow blood counts, renal function, electrolytes and LFTs. Appreciate surgical recommendations as per Dr. Acosta. Planning for incision and drainage tomorrow 12/0112/01/16 Underwent surgical debridement of necrotic tissue of left lower leg wound - Dr Acosta Continue with vanco and cefepime for coverage. Culture and sensitivities pending. Continue wound care as outline by Dr Acosta. Decrease NS to 50cc/hr. Continue pain control. As blood pressure with elevation will start Norvasc 5mg daily. Will consult PT in am to help functional status due to gait instability from leg wound. Recheck CBC in am due to leukopenia. Will check BMP in am due to IVF and medication use. Sepsis Assessment - Evaluation Sepsis screening result: No Definite Risk
[2016-12-02] MEDS ORDERED: Bisacodyl EC TAB 5 MG TABLET PO ONE (08:26)
[2016-12-02] MEDS ORDERED: AMLODIPINE 5 MG TABLET PO SCH (09:00)
--- NOTE | 2016-12-02 09:52 | Progress Note ---
DATE 12/02/2016 FINDINGS Mrs. Rodrigues was in good spirits today. She states that her left lower extremity is less painful today. VITALS: Afebrile. Normotensive. Last recorded vitals include temperature 97.8 , pulse 74, respirations 20, blood pressure 156/96, SaO2 92% on room air. HEENT: Normocephalic. Pupils are equal, round and reactive to light and accommodation. CHEST: Clear to auscultation bilaterally. HEART: Regular rate and rhythm. Normal S1 and S2 without gallops, murmurs or clicks. EXTREMITIES: Attention was focused to the left lower extremity. Wound dressing was applied yesterday and it remains intact. The wound was completely debrided yesterday and showed marked improvement. The periwound erythema has at this time essentially resolved. LABORATORY/RADIOGRAPH EVALUATION The patient's white count on admission was elevated and today has returned to normal at 4.2. Hemoglobin is normal at 12.0. BMP obtained and found to be without marked abnormalities. Final culture and sensitivity still pending. Gram negative rods have been identified. ASSESSMENT 51-year-old female with a traumatic wound involving left lower extremity with associated necrosis and cellulitis. Patient has shown marked improvement since admission. PLAN I do believe the patient could likely be discharged later today. Would likely send the patient home on fluoroquinolone given her culture results showing gram- negative rods and the fact it did appear that she had some Pseudomonas-like appearance to her wound. Would have the patient follow up in wound center beginning of next week. Will defer further wound care to her wound physician at our wound center. One may wish to reinitiate negative wound pressure therapy on an outpatient basis. LANETTE
--- NOTE | 2016-12-02 11:04 | Discharge Instructions ---
Discharge Plan - Med Rec/Dispo [facility] Instructions: Wound Infection (DC), Debridement (DC), Wound Healing and Your Diet (DC) Additional Instructions: Follow up in the wound clinic on December 05 or . Leave the current dressing in place. Do not get it wet. Prescriptions: No Action Naproxen Sodium [Aleve] 440 mg PO Q6HR PRN PRN Reason: Pain Hydrocodone/APAP 5/325 [[place] 5/325] 1 - 2 tab PO Q6H PRN #12 tab PRN Reason: Pain Sulfamethox/Tmp [Bactrim Ds] 2 tab PO BID #28 tablet - Disposition 01 Discharged Home, Self-Care
[2016-12-02 11:31] VITALS: BP 163/95; PULSE 67; RESP 14; TEMP 97; O2SAT 100
--- NOTE | 2016-12-02 14:05 | Progress Note ---
Subjective: F/U: Sepsis-resolved, traumatic wound to LE failing outpatient treatment Doing well today. Still some discomfort to leg, but manageable. Ambulating well- using caution and trying not to put weight on foot. Breathing well. Eating well. No f/c. Objective Vital signs: Temperature 97.0 F 12/02/16 11:00 Pulse Rate 67 12/02/16 11:00 Respiratory Rate 14 12/02/16 11:00 Blood Pressure 163/95 H 12/02/16 11:00 Pulse Oximetry 100 12/02/16 11:00 Oxygen Delivery Method Room Air Weight: 79.7 kg - Constitutional Present: no acute distress, well nourished, well developed, cooperative - Routine HEENT Exam Head: Present: normocephalic, atraumatic Eye: Present: EOMI, PERRL. Absent: conjunctival icterus ENT: Present: mucous membranes moist - Routine Respiratory Exam Present: CTA bilaterally. Absent: respiratory distress, wheezes, crackles - Routine Cardiovascular Exam Present: RRR - Routine Abdominal Exam Present: soft, normoactive bowel sounds, non distended, non tender. Absent: rebound, guarding - Routine Extremities Exam Present: pulses intact. Absent: cyanosis, clubbing - Routine Musculoskeletal Exam Musculoskeletal: Present: no clubbing or cyanosis, normal strength - Routine Skin Exam Present: wounds (Covered and dry). Absent: cyanosis, pallor, mottling - Routine Neurological Exam Present: alert, oriented X3, CN II-XII intact, vision grossly intact, hearing grossly intact. Absent: motor deficit - Routine Psychiatric Exam Present: normal affect, normal thought process, cooperative, good insight, good judgment. Absent: anxious, agitated Results - Labs CBC & Chem 7: 12/02/16 04:56 12/02/16 04:56 Assessment and Plan (1) Wound of lower extremity Current visit: Yes Status: Acute (2) Sepsis Current visit: Yes Status: Resolved (3) Leukocytosis Current visit: Yes Status: Resolved (4) Elevated liver enzymes Current visit: Yes Status: Chronic (5) Hypertension Current visit: Yes Status: Chronic (6) COPD (chronic obstructive pulmonary disease) Current visit: Yes Status: Chronic (7) Depression Current visit: Yes Status: Chronic (8) Anxiety Current visit: Yes Status: Chronic (9) Hepatitis C Current visit: Yes Status: Chronic DVT Prophylaxis: SCD's Assessment and Plan: Will d/c to home in stable condition. Home health set up. Continue Norvasc for BP control. Encouraged avoidance of sodium. Will have pt f/u with [facility] in 1 week for BP evaluation. Continue with outpatient wound care. Bernard for pain. See orders for details. Case discussed with CM and Dr Acosta. Time spent with patient care and discharge greater than 30 minutes. Sepsis Assessment - Evaluation Sepsis screening result: No Definite Risk Hospital Course Summary Disclaimer: The visit summary below is not to be considered part of the above Progress Note. Hospital Course: 11/29/16- Admission 1. Will place patient in inpatient admission status at [facility] under the care of Dr. Aguila. Anticipate greater than two midnights of care needed. 2. Start vancomycin empirically for antimicrobial coverage of skin. Will add cefepime as Dr. Acosta worries there may be Pseudomonas involved. 3. Initiate IV fluids of normal saline at 100 mL/hr to maintain hydration. 4. Will have [place] 7.5 available every four hours as needed for pain. She may continue with Aleve but would decrease the dose down to 220 mg b.i.d. p.r.n. ( possible elevation of liver enzymes secondary to excessive Aleve use). In addition, for more severe pain Dilaudid 0.5 mg will be available q.3h. as needed. 5. Dr. Acosta has been consulted - will help follow with wound care. 6. Will consult with wound team. 7. RT will provide tobacco cessation information. Patient was encouraged to continue to work to become a nonsmoker. 8. Initiate SCDs to her right lower extremity for DVT prevention. 9. Will have Zofran available as needed for nausea. 10. Milk of magnesia will be available as needed for constipation. 11. Recheck CBC and CMP in a.m. 12. Patient's care will be returned to [facility] at time of discharge from [facility]. 13. Case was discussed with Dr. Gutierrez and Dr. Acosta. 11/30/16 Including Cefepime and Vancomycin for ongoing antimicrobial coverage. Work on pain control including Emla cream topical, and Bernard She may utilize Benadryl as needed for itching Continue to monitor laboratory studies. Leukocytosis have resolved, white count today 7.8. Continue to follow. Elevated liver enzymes as this is likely chronic related to her history of hepatitis C. Recheck CBC and CMP tomorrow morning to follow blood counts, renal function, electrolytes and LFTs. Appreciate surgical recommendations as per Dr. Acosta. Planning for incision and drainage tomorrow 12/0112/01/16 Underwent surgical debridement of necrotic tissue of left lower leg wound - Dr Acosta Continue with vanco and cefepime for coverage. Culture and sensitivities pending. Continue wound care as outline by Dr Acosta. Decrease NS to 50cc/hr. Continue pain control. As blood pressure with elevation will start Norvasc 5mg daily. Will consult PT in am to help functional status due to gait instability from leg wound. Recheck CBC in am due to leukopenia. Will check BMP in am due to IVF and medication use. 12/02/16 Doing well today. Still some discomfort to leg, but manageable. Ambulating well- using caution and trying not to put weight on foot. Breathing well. Eating well. Will d/c to home in stable condition. Home health set up. Continue Norvasc for BP control. Encouraged avoidance of sodium. Will have pt f/u with [facility] in 1 week for BP evaluation. Continue with outpatient wound care. Bernard for pain. See orders for details.
--- NOTE | 2016-12-02 14:11 | Discharge Summary ---
Discharge Information Date of admission: 11/29/16 17:52 Anticipated date of discharge: 12/02/16 Attending Physician: Santos Aguila MD Primary care physician: Yamilet Swift APRN Consults: 11/29/16 18:23 [Physician Consult] [CONS] Routine Consulting Provider: Sage Acosta Reason For Exam: Leg wound 11/29/16 19:10 Wound [facility]in Clinic Consult [CONS] Routine Reason for consultation: Left leg wound - Discharge Diagnosis (1) Wound of lower extremity Qualifiers: Encounter type: initial encounter Laterality: left Qualified Code(s): S81.802A - Unspecified open wound, left lower leg, initial encounter Problem Details: Wound culture with Kledsiella pneumoniae and Edwarsiella tarda Status: Acute (2) Sepsis Qualifiers: Sepsis type: sepsis due to unspecified organism Qualified Code(s): A41.9 - Sepsis, unspecified organism Status: Resolved (3) Leukocytosis Status: Resolved (4) Elevated liver enzymes Status: Chronic (5) Hypertension Status: Chronic (6) COPD (chronic obstructive pulmonary disease) Status: Chronic (7) Depression Status: Chronic (8) Anxiety Status: Chronic (9) Hepatitis C Status: Chronic - Laboratory Labs: 12/02/16 04:56 12/02/16 04:56 - Microbiology Wound culture with Klebsiella pneumoniae and Edwardsiella tarda History of Present Illness HPI: Mrs. Rodrigues is a 51-year-old female who presents to [facility] Emergency Room from wound clinic for evaluation of her left leg wound. She reports in the early part of October [place] She scraped her left anterior soria and developed a wound. Typically she heals quite well. After this wound occurred she cleaned it and wiped it down. She kept it wrapped. About two days after her initial injury she reports of blister formation and she popped the blister that evening. By the next morning she reports her leg was looking very black. Ultimately she was seen in wound clinic by Dr. Pierre on November 03. She has been working with them ever since. She has been on Bactrim DS but she is not certain when it was started - she reports she has four more tablets left. On Monday, 2016, she had a wound VAC placed. She reports once the wound VAC was placed she noticed her wound started to smell more foul and was having much more discomfort. Over the weekend she was having increasing fevers and chills. She has also been noticing nausea and mild headache. She missed her appointment to be seen in wound clinic but did present to wound clinic today. When the wound was reevaluated it looked much worse - it was malodorous and draining purulent material. She was sent over to emergency room for evaluation. There her heart rate was 94 and blood pressure maintained at 127/98 (the patient does report hypertension with blood pressures usually running much higher). Dr. Gutierrez saw her in the emergency room and he did report a 10 x 5 cm wound on her left anterior tibia. Lab was obtained revealing leukocytosis with white count 14.4 and 78.2% neutrophils. Plasma lactate is 1.8. Liver enzymes are showing elevation. In light of her lower extremity wound with surrounding cellulitis and patient flagging positive for sepsis syndrome, Dr. Aguila was notified and she was subsequently placed in inpatient admission status for further antimicrobial therapy and wound care. Anticipated length of stay is thought to be greater than two midnights. For complete details of the H&P refer to that document. Objective Vital signs: Temperature 97.0 F 12/02/16 11:00 Pulse Rate 67 12/02/16 11:00 Respiratory Rate 14 12/02/16 11:00 Blood Pressure 163/95 H 12/02/16 11:00 Pulse Oximetry 100 12/02/16 11:00 Oxygen Delivery Method Room Air Weight: 79.7 kg Hospital Course This is a general summary of the patient's hospital course. For more details refer to the complete medical record. Hospital course: 11/29/16- Admission 1. Will place patient in inpatient admission status at [facility] under the care of Dr. Aguila. Anticipate greater than two midnights of care needed. 2. Start vancomycin empirically for antimicrobial coverage of skin. Will add cefepime as Dr. Acosta worries there may be Pseudomonas involved. 3. Initiate IV fluids of normal saline at 100 mL/hr to maintain hydration. 4. Will have [place] 7.5 available every four hours as needed for pain. She may continue with Aleve but would decrease the dose down to 220 mg b.i.d. p.r.n. ( possible elevation of liver enzymes secondary to excessive Aleve use). In addition, for more severe pain Dilaudid 0.5 mg will be available q.3h. as needed. 5. Dr. Acosta has been consulted - will help follow with wound care. 6. Will consult with wound team. 7. RT will provide tobacco cessation information. Patient was encouraged to continue to work to become a nonsmoker. 8. Initiate SCDs to her right lower extremity for DVT prevention. 9. Will have Zofran available as needed for nausea. 10. Milk of magnesia will be available as needed for constipation. 11. Recheck CBC and CMP in a.m. 12. Patient's care will be returned to [facility] at time of discharge from [facility]. 13. Case was discussed with Dr. Gutierrez and Dr. Acosta. 11/30/16 Including Cefepime and Vancomycin for ongoing antimicrobial coverage. Work on pain control including Emla cream topical, and [place] She may utilize Benadryl as needed for itching Continue to monitor laboratory studies. Leukocytosis have resolved, white count today 7.8. Continue to follow. Elevated liver enzymes as this is likely chronic related to her history of hepatitis C. Recheck CBC and CMP tomorrow morning to follow blood counts, renal function, electrolytes and LFTs. Appreciate surgical recommendations as per Dr. Acosta. Planning for incision and drainage tomorrow 12/0112/01/16 Underwent surgical debridement of necrotic tissue of left lower leg wound - Dr Acosta Continue with vanco and cefepime for coverage. Culture and sensitivities pending. Continue wound care as outline by Dr Acosta. Decrease NS to 50cc/hr. Continue pain control. As blood pressure with elevation will start Norvasc 5mg daily. Will consult PT in am to help functional status due to gait instability from leg wound. Recheck CBC in am due to leukopenia. Will check BMP in am due to IVF and medication use. 12/02/16 Doing well today. Still some discomfort to leg, but manageable. Ambulating well- using caution and trying not to put weight on foot. Breathing well. Eating well. Will d/c to home in stable condition. Home health set up. Continue Norvasc for BP control. Encouraged avoidance of sodium. Will have pt f/u with [facility] in 1 week for BP evaluation. Continue with outpatient wound care. F/U with Wound Clinic on 12/05 or . [place] for pain. See orders for details. Time spent with patient: discharge greater than 30 minutes DVT Prophylaxis: SCD's Discharge Plan - Med Rec/Dispo Referrals/Follow Up: Yamilet Swift APRN [Family Provider] - 1 Week (BP evaluation - Norvasc started. ) Corine Pierre MD [Physician] - (Wound clinic on 12/05 or 12/06 ) [facility] Instructions: Wound Infection (DC), Debridement (DC), Wound Healing and Your Diet (DC) Additional Instructions: Follow up in the wound clinic on December 05 or . Leave the current dressing in place. Do not get it wet. Prescriptions: New Hydrocodone/APAP 7.5/325 [[place] 7.5/325] 1 tab PO Q4H PRN #40 tablet PRN Reason: Pain Naproxen [Aleve] 220 mg PO BID PRN tablet PRN Reason: Pain Amlodipine [Norvasc] 5 mg PO DAILY #30 tablet Ciprofloxacin [Cipro] 500 mg PO BID #20 tablet Discontinued Naproxen Sodium [Aleve] 440 mg PO Q6HR PRN PRN Reason: Pain Hydrocodone/APAP 5/325 [[place] 5/325] 1 - 2 tab PO Q6H PRN #12 tab PRN Reason: Pain Sulfamethox/Tmp [Bactrim Ds] 2 tab PO BID #28 tablet Discharge Instructions/Outpatient Orders: Final Provider Discharge Instructions Location: Determined By Patient - Disposition 01 Discharged Home, Self-Care - Attestation Attestation Narrative: Patient seen and examined by myself today. Medically stable for discharge.
[2016-12-02] MEDS ORDERED: LEVOFLOXACIN 500 MG TABLET PO ONE (14:18)
== END 2016-12-02 14:48 | disposition home or self-care (01) | DRG 854 ==
LOC: ED 15:16 → SRG 17:52
PROVIDERS: ADMIT Hospitalist; ATTEND Hospitalist